=== PATIENT | female | born 1990 | race Caucasian/White ===

== ENCOUNTER 2025-09-05 09:24 | Emergency (ER) | payer OTHER, SELFPAY ==
[2025-09-05] VITALS (8 sets, daily range): BP systolic 105–142; BP diastolic 57–75; BMI 29.4
--- NOTE | 2025-09-05 09:56 | ED.GENMED ---
History of Present Illness
<Nabeel Loyd PA-C - Last Filed: 09/07/25 11:52>
General
Chief Complaint: Abdominal Symptoms
Time Seen by Provider: 09/05/25 09:47
History of Present Illness
History of Present Illness:
34-year-old female with history of hypertension presents to the emergency department from [facility] due to nausea and lower abdominal pain that began this morning. She is a challenging historian and does not provide
significant details of her symptoms. She has been an inmate at the correctional facility for quite some time and denies recent illicit substance use. Denies dysuria or hematuria.
Past History
<Nabeel Loyd PA-C - Last Filed: 09/07/25 11:52>
Past History
ED Past Medical History: None
ED Past Surgical History: None
Social History
Tobacco: Non-smoker
Alcohol: None
Drug: Narcotics
Review of Systems
<Nabeel Loyd PA-C - Last Filed: 09/07/25 11:52>
Review of Systems
Allergies reviewed?: Yes
All Other Systems: ROS reviewed and negative except as documented in HPI and ROS
Phy Exam
<Nabeel Loyd PA-C - Last Filed: 09/07/25 11:52>
Physical Exam
Physical Exam:
GEN: Well appearing, NAD, WDWN
HEENT: Oral mucosa moist, no scleral icterus
Cardiac: Regular rate and rhythm, no murmurs
Lung: No respiratory distress, no tachypnea
Abdomen: Soft, focal tenderness to the suprapubic space, no rigidity or peritoneal signs
MSK: No gross deformity or injuries
Skin: Good color, no pallor or jaundice, no rashes
Neuro: AO x3, moves all extremities freely
Psych: Calm, cooperative
Course
<Nabeel Loyd PA-C - Last Filed: 09/07/25 11:52>
Orders/Labs/Results
Orders:
Orders
09/05/25 09:39
IV Insert/Care/Rem.- Treatment PRN
Test Result ONCE
09/05/25 09:40
Complete Blood Count/With Diff Urgent
Comprehensive Metabolic Panel Urgent
HCG, Serum Qualitative Screen Urgent
Comment: Notify provider if positive test present
Lipase Urgent
09/05/25 09:53
0.9% Sodium Chloride 1000 ml [Nss] 1,000 ml IV BOLUS
09/05/25 11:39
Urinalysis Reflex To Culture Urgent
Date Specimen was Collected: 09/05/25
Time Specimen was Collected: 11:38
Urine Microscopic Reflex Cult Urgent
09/05/25 11:49
CT Abd/Pel (IV only)-DH only Urgent
Comment:
Reason For Exam: suprapubic pain
09/05/25 14:19
Ketorolac [Toradol] 15 mg IV NOW STA
US Pelvis W Transvag Combined Urgent
Comment:
Reason For Exam: suprapubic pain
09/05/25 17:40
Acetaminophen [Tylenol] 1,000 mg PO NOW STA
Abnormal Lab Results
09/05/25 09/05/25
09:40 11:39
MCV 80.1 L fL
(81.0-99.0)
Abs Immat Gran (auto) 0.1 H 10^3/uL
(0-0.05)
Absolute Neuts (auto) 8.9 H 10^3/uL
(1.4-6.5)
Neutrophils % 81.8 H %
(42.2-75.2)
Lymphocytes % 13.7 L %
(20.5-51.1)
Chloride 108 H mmol/L
(98-107)
Carbon Dioxide 21 L mmol/L
(22-30)
Glucose 103 H mg/dl
(70-99)
Urine Ketones 3+ A
(Negative)
Urine Bacteria (Reflex) Few A
(Negative)
Urine Albumin (Reflex) 1+ A
(Neg - Trace)
09/05/25 09:40
09/05/25 09:40
Vital Signs
Initial and Last Documented VS:
Initial Vital Signs
Temp Pulse Resp BP Pulse Ox
98.1 F 58 18 142/74 98
09/05/25 09:31 09/05/25 09:31 09/05/25 09:31 09/05/25 09:31 09/05/25 09:31
Last Documented Vital Signs
Temp Pulse Resp BP Pulse Ox
98.1 F 60 27 126/73 86
09/05/25 09:31 09/05/25 18:02 09/05/25 18:02 09/05/25 18:02 09/05/25 18:02
<Alisia Fung PA-C - Last Filed: 09/05/25 23:20>
Orders/Labs/Results
Orders:
Orders
09/05/25 09:39
IV Insert/Care/Rem.- Treatment PRN
Test Result ONCE
09/05/25 09:40
Complete Blood Count/With Diff Urgent
Comprehensive Metabolic Panel Urgent
HCG, Serum Qualitative Screen Urgent
Comment: Notify provider if positive test present
Lipase Urgent
09/05/25 09:53
0.9% Sodium Chloride 1000 ml [Nss] 1,000 ml IV BOLUS
09/05/25 11:39
Urinalysis Reflex To Culture Urgent
Date Specimen was Collected: 09/05/25
Time Specimen was Collected: 11:38
Urine Microscopic Reflex Cult Urgent
09/05/25 11:49
CT Abd/Pel (IV only)-DH only Urgent
Comment:
Reason For Exam: suprapubic pain
09/05/25 14:19
Ketorolac [Toradol] 15 mg IV NOW STA
US Pelvis W Transvag Combined Urgent
Comment:
Reason For Exam: suprapubic pain
09/05/25 17:40
Acetaminophen [Tylenol] 1,000 mg PO NOW STA
Abnormal Lab Results
09/05/25 09/05/25
09:40 11:39
MCV 80.1 L fL
(81.0-99.0)
Abs Immat Gran (auto) 0.1 H 10^3/uL
(0-0.05)
Absolute Neuts (auto) 8.9 H 10^3/uL
(1.4-6.5)
Neutrophils % 81.8 H %
(42.2-75.2)
Lymphocytes % 13.7 L %
(20.5-51.1)
Chloride 108 H mmol/L
(98-107)
Carbon Dioxide 21 L mmol/L
(22-30)
Glucose 103 H mg/dl
(70-99)
Urine Ketones 3+ A
(Negative)
Urine Bacteria (Reflex) Few A
(Negative)
Urine Albumin (Reflex) 1+ A
(Neg - Trace)
09/05/25 09:40
09/05/25 09:40
Vital Signs
Initial and Last Documented VS:
Initial Vital Signs
Temp Pulse Resp BP Pulse Ox
98.1 F 58 18 142/74 98
09/05/25 09:31 09/05/25 09:31 09/05/25 09:31 09/05/25 09:31 09/05/25 09:31
Last Documented Vital Signs
Temp Pulse Resp BP Pulse Ox
98.1 F 60 27 126/73 86
09/05/25 09:31 09/05/25 18:02 09/05/25 18:02 09/05/25 18:02 09/05/25 18:02
<Nabeel Loyd PA-C - Last Filed: 09/07/25 11:52>
MDM/Problems Addressed
MDM/Problems Addressed:
Unclear etiology of patient's symptoms, labs are reassuring and vital signs remained stable in the emergency department. Imaging shows no evidence of acute pathology, of note she does have areas suspicious for injection sites to the anterior
abdominal wall, on exam there is no evidence for palpable abscess or erythema. She denies injection drug use. Do not feel the symptoms represent any medication interactions based on her current med regimen. From my standpoint she is suitable for
discharge back to the correctional facility
<Nabeel Loyd PA-C - Last Filed: 09/07/25 11:52>
*Pulse Oximetry
SaO2: 98
Oxygen Mode of Delivery: Room air
<Alisia Fung PA-C - Last Filed: 09/05/25 23:20>
*Pulse Oximetry
Patient hypoxic: no
*Critical Care Note
Total Time (30-74mins, 75-104mins- exclusive of procedures): Not Applicable
<JIM Verdugo Last Filed: 09/07/25 11:52>
Update Note
Update Note:
Plan was to discharge the patient given unremarkable workup however she is reporting severe unrelenting pain thus we will give IV Toradol and check ultrasound to rule out ovarian pathology
<Alisia Fung PA-C - Last Filed: 09/05/25 23:20>
Update Note
Update Note:
Plan was to discharge the patient given unremarkable workup however she is reporting severe unrelenting pain thus we will give IV Toradol and check ultrasound to rule out ovarian pathology
Update: Assumed care of patient pending ultrasound report. Pelvic ultrasound reveals partially ruptured right ovarian cyst. Suspect this is likely etiology of patient's presenting pain. No evidence of associated infectious process. Her abdomen
remains soft. Her vitals are stable. Will discharge home with supportive care instructions and very close return precautions. Patient expressed verbal understanding.
ED Attending Note
<Nabeel Loyd PA-C - Last Filed: 09/07/25 11:52>
-
Portions of this chart may have been created with voice recognition software.� Occasional wrong word or��sound alike� substitutions may have occurred due to the inherent limitations of voice recognition software.
Discharge Plan
Departure
Patient Disposition: Care Home
Date of Disposition: 09/05/25
Time of Disposition: 17:43
Patient with high blood pressure during this ER visit?: Yes
Discharge Problem:
Abdominal pain, Ruptured cyst of ovary
Instructions: Ovarian cyst - ED (DC), Abdominal Pain, BLOOD PRESSURE
Prescriptions:
No Action
trazodone 100 mg Tablet
100 mg PO HS
propranolol 20 mg Tablet
20 mg PO BID
prazosin 2 mg Capsule
2 mg PO HS
Vivitrol 380 mg Suspension,Extended Rel Recon
380 mg IM QMONTH
fluoxetine 60 mg Tablet
60 mg PO DAILY
Referrals:
[facility] [Family Provider, General]
Activity Restrictions/Additional Instructions:
RETURN TO THE EMERGENCY DEPARTMENT WITH ANY FEVER, PERSISTENT/WORSENING ABDOMINAL PAIN, INTRACTABLE NAUSEA/VOMITING, SIGNIFICANT WEAKNESS, WORSENING IN CURRENT SYMPTOMS, OR ANY OTHER CONCERNS
- As discussed�your pelvic ultrasound showed findings consistent with a partially ruptured right sided ovarian cyst which is likely contributing to your symptoms today. Your CT scan and lab work showed no acute abnormalities.
-Please give antiemetics (ondansetron 4mg ODT) every 6-8 hours for nausea as needed as well as ibuprofen 600 mg every 6-8 hours as needed for pain.
-Follow-up with your primary care provider and [facility] for further evaluation/management
Monitor your symptoms closely and return to the emergency department any acute worsening/new symptoms or any other concerns
Interventions
Interventions:
*Risk Screen - Suicide Last Done: 09/05/25 09:31
*General Assessment Last Done: 09/05/25 09:31
*Neglect/Abuse Screening Last Done: 09/05/25 09:31
*ED- Fall Risk Assessment Last Done: 09/05/25 09:31
*ED COVID-19 Vaccine History Last Done: 09/05/25 09:31
*ED Influenza Vaccine History Last Done: 09/05/25 09:31
*Nursing Disposition Last Done: 09/05/25 18:22
AE-Vprbsl-Vjodvgpywq Assessment Last Done: 09/05/25 10:26
Discharge Date and Time
Discharge Date/Time: 09/05/25 18:23
Print Language: [id number]
[2025-09-05 10:10] LABS: Hematocrit 37.9 % (37.0-47.0); Hemoglobin 13.2 g/dL (12.0-16.0); Mean Corp Hgb Conc. 34.8 g/dL (33.0-37.0); Mean Corpuscular Volume 80.1 fL (81.0-99.0); Nucleated Red Blood Cells % 0 %; Platelet Count 265 10^3/uL (130-400); Red Cell Dist. Width 13.1 % (11.5-14.5)
[2025-09-05] MEDS: NSS 1000 IV (10:22)
[2025-09-05 10:29] LABS: ALT (SGPT) 29 U/L (0-35); AST (SGOT) 29 U/L (14-36); Albumin 4.8 g/dl (3.5-5.0); Alkaline Phosphatase 79 U/L (38-126); Blood Urea Nitrogen 14 mg/dl (7-17); Calcium 10.0 mg/dl (8.4-10.2); Carbon Dioxide 21 mmol/L (22-30); Chloride 108 mmol/L (98-107); Estimated Creatinine Clearance > 125 ml/min; Glucose 103 mg/dl (70-99); Lipase 87 U/L (23-300); Potassium 3.9 mmol/L (3.5-5.1); Sodium 138 mmol/L (135-145); Total Protein 7.6 g/dl (6.3-8.2); eGFR > 60.00
[2025-09-05 10:30] LABS: HCG, Serum Qualitative Screen Negative
[2025-09-05 11:46] LABS: Urine Character Clear (Clear)
[2025-09-05 11:55] LABS: Urine Red Blood Cell 0-2 /HPF (0-2); Urine White Cell 0-2 /HPF (0-5)
[2025-09-05] MEDS: TORADOL 15 MG IV (14:24)
[2025-09-05] MEDS: TYLENOL 1000 MG PO (18:09)
== END 2025-09-05 18:23 ==
LOC: EMR 09:24
PROVIDERS: Emergency Medicine; Physician Assistant; EMERGENCY PHYSICIAN Student in an Organized Health Care Education/Training Program
DX: N83.11 Corpus luteum cyst of right ovary (principal); I10 Essential (primary) hypertension
CPT/HCPCS: 96374; 96361; 99284; 74177; 76830; 76856; 80053; 81003; 81015; 83690; 84703; 85025; Q9967